=== PATIENT | female | born 1970 | race Caucasian/White ===

== ENCOUNTER 2022-03-23 08:06 | Outpatient (CLI) | payer BC, SELFPAY ==
[2022-03-23 13:20] LABS: Chloride* 106 mmol/L (96-114); Potassium* 4.7 mmol/L (3.6-5.1); Sodium* 140 mmol/L (135-149)
[2022-03-23 13:22] LABS: Cholesterol* 212 mg/dL (90-199)
[2022-03-23 13:23] LABS: Blood Urea Nitrogen* 23 mg/dL (5-24); Calcium* 9.8 mg/dL (8.4-10.6); Carbon Dioxide* 27 mmol/L (20-32); Creatinine* 0.7 mg/dL (0.5-1.5); Estimated Glomerular Filt Rate 106 ml/min; Glucose* 112 mg/dL (60-115); HDL Cholesterol* 33 mg/dL (>=50); LDL Cholesterol Calculated 120 mg/dL (<100); Triglycerides* 293 mg/dL (40-149)
== END 2022-03-23 08:07 | disposition home or self-care (01) ==
PROVIDERS: PCP Emergency Medicine; Visit Provider Emergency Medicine
DX: Z00.00 Encounter for general adult medical examination without abnormal findings (principal); Z13.6 Encounter for screening for cardiovascular disorders
CPT/HCPCS: 80048; 80061

== ENCOUNTER 2022-07-15 13:09 | Outpatient (CLI) | payer BC, SELFPAY ==
--- NOTE | 2022-07-15 13:40 | CRLHL7_ITS ---
For Patients: As a result of the Cures Act, medical imaging exams and procedure reports are released immediately into your electronic medical record. You may view this report before your referring provider. If you have questions, please contact your health care provider. BILATERAL SCREENING MAMMOGRAM WITH COMPUTER-AIDED DETECTION TECHNIQUE: CC and MLO views were obtained. These mammographic images have been obtained using full-field digital technique. These mammographic images were interpreted with the benefit of computer-aided detection. COMPARISON FILM: Baseline. FINDINGS: The breasts are heterogeneously dense, which may obscure small masses IMPRESSION: There is no radiographic evidence for malignancy. ASSESSMENT: BI-RADS Category 2: Benign RECOMMENDATION: Routine screening mammogram in 1 year. A lay language report of this examination will be provided to the patient. ARIANNE MALAGON M.D. Diagnostic/Nuclear Medicine Radiologist [email or web address] Transcribed: 3:41 p.mJuana chaudhary/Dictated by: Arianne Malagon MD @ 07/18/2022 8:38:00 AM (Electronically Signed)
== END 2022-07-15 13:10 | disposition home or self-care (01) ==
LOC: MAMMO 13:11
PROVIDERS: PCP Emergency Medicine; Visit Provider Emergency Medicine
DX: Z12.31 Encounter for screening mammogram for malignant neoplasm of breast (principal); R92.2 Inconclusive mammogram
CPT/HCPCS: 77067

== ENCOUNTER 2024-03-06 10:17 | Outpatient (CLI) | payer BC, SELFPAY | END 2024-03-06 10:18 | disposition home or self-care (01) | PROVIDERS: PCP Emergency Medicine; Visit Provider Physician Assistant Medical | DX: E87.1 Hypo-osmolality and hyponatremia (principal); Z13.228 Encounter for screening for other metabolic disorders; Z13.29 Encounter for screening for other suspected endocrine disorder; Z12.4 Encounter for screening for malignant neoplasm of cervix | CPT/HCPCS: 80053; 80061; 84443; 87624 ==

== ENCOUNTER 2024-05-21 11:11 | Outpatient (CLI) | payer BC, SELFPAY ==
--- NOTE | 2024-05-21 11:30 | CRLHL7_ITS ---
For Patients: As a result of the Century Cures Act, medical imaging exams and procedure reports are released immediately into your electronic medical record. You may view this report before your referring provider. If you have questions, please contact your health care provider. BILATERAL DIGITAL SCREENING MAMMOGRAM WITH COMPUTER-AIDED DETECTION AND TOMOSYNTHESIS CLINICAL HISTORY: Routine screening exam. COMPARISON: 07/15/2022. TECHNIQUE: Digital mammogram in CC and MLO projections including computer-aided detection (CAD). Tomosynthesis was used in this interpretation. BREAST COMPOSITION: The breasts are heterogeneously dense, which may obscure small masses. FINDINGS: RIGHT Breast: No suspicious findings. LEFT Breast: Cluster of microcalcifications are present within the lower inner quadrant 4 cm from the nipple. IMPRESSION: LEFT breast calcifications. RECOMMENDATIONS: Spot compression magnification views of the calcifications in the LEFT breast in CC and ML projections. [facility] will contact the patient. A lay language report of this examination will be provided to the patient. BI-RADS Category 0: Incomplete: Need Additional Imaging Evaluation Dictated by Jon Huffman MD @ 05/21/2024 12:13:52 PM /Dictated by: Jon Huffman MD @ 05/21/2024 12:14:00 PM (Electronically Signed)
== END 2024-05-21 11:12 | disposition home or self-care (01) ==
LOC: MAMMO 11:12
PROVIDERS: PCP Physician Assistant Medical; Visit Provider Physician Assistant Medical
DX: Z12.31 Encounter for screening mammogram for malignant neoplasm of breast (principal); R92.333 Mammographic heterogeneous density, bilateral breasts; R92.1 Mammographic calcification found on diagnostic imaging of breast
CPT/HCPCS: 77063; 77067

== ENCOUNTER 2024-06-03 07:47 | Outpatient (CLI) | payer BC, SELFPAY ==
--- NOTE | 2024-06-03 07:45 | CRLHL7_ITS ---
For Patients: As a result of the Cures Act, medical imaging exams and procedure reports are released immediately into your electronic medical record. You may view this report before your referring provider. If you have questions, please contact your health care provider. DIGITAL DIAGNOSTIC LEFT MAMMOGRAM WITH TOMOSYNTHESIS AND COMPUTER-AIDED DETECTION CLINICAL HISTORY: LEFT breast mass/asymmetry. COMPARISON: 05/21/2024, 07/15/2022. TECHNIQUE: Digital LEFT mammogram in two projections. Tomosynthesis and computer-aided detection utilized. BREAST COMPOSITION: There are scattered areas of fibroglandular density. FINDINGS: Spot magnification CC/true lateral LEFT breast mammogram images submitted. A few scattered punctate calcifications are present within the deep LEFT breast without pleomorphism or underlying mass. Calcifications spread out on the magnification views. IMPRESSION: Benign punctate calcifications scattered within the deep LEFT breast. No suspicious findings. RECOMMENDATIONS: Routine screening mammography. A lay language report of this examination will be provided to the patient. BI-RADS Category 2: Benign Dictated by Jon Huffman MD @ 06/03/2024 12:07:45 PM jj/Dictated by: Jon Huffman MD @ 06/03/2024 12:07:00 PM (Electronically Signed)
== END 2024-06-03 07:48 | disposition home or self-care (01) ==
LOC: MAMMO 07:47
PROVIDERS: PCP Physician Assistant Medical; Visit Provider Physician Assistant Medical
DX: N63.20 Unspecified lump in the left breast, unspecified quadrant (principal); R92.1 Mammographic calcification found on diagnostic imaging of breast; R92.8 Other abnormal and inconclusive findings on diagnostic imaging of breast
CPT/HCPCS: 77065; G0279

== ENCOUNTER 2024-12-31 09:41 | Outpatient (CLI) | payer BC, SELFPAY ==
--- NOTE | 2024-12-31 10:00 | CRLHL7_ITS ---
For Patients: As a result of the Century Cures Act, medical imaging exams and procedure reports are released immediately into your electronic medical record. You may view this report before your referring provider. If you have questions, please contact your health care provider. INDICATION: VERTIGO. PRESSURE IN EARS TECHNIQUE: Non-contrast CT of the temporal bones is submitted. COMPARISON: None. FINDINGS: Right temporal bone structures: Unremarkable external auditory canal and tympanic membrane. The ossicular chain is intact. Partially pneumatized right petrous apex with a few partially fluid-filled air cells. The middle ear cavity and mastoid air cells are otherwise clear with no evidence of bony erosion. The fluid containing vestibulocochlear inner ear structures are unremarkable. Unremarkable internal auditory and facial nerve canals. Left temporal bone structures: Unremarkable external auditory canal and tympanic membrane. The ossicular chain is intact. The middle ear cavity and mastoid air cells are clear with no evidence of bony erosion. The fluid containing vestibulocochlear inner ear structures are unremarkable. The internal auditory and facial nerve canals are unremarkable. The partially visualized intracranial contents are unremarkable. Partially visualized mild mucosal thickening with a small retention cyst in the right maxillary sinus. The visualized paranasal sinuses are otherwise essentially clear. IMPRESSION: Partial opacification of a few pneumatized right petrous apex air cells, which may reflect a small effusion. Otherwise, unremarkable appearance of the bilateral temporal bone structures. Please note that all CT scans at this facility use dose modulation, iterative reconstruction, and/or weight-based dosing when appropriate to reduce radiation dose to as low as reasonably achievable. Dictated by Yared Adhikari MD @ 12/31/2024 5:44:06 PM (Electronically Signed)
--- NOTE | 2024-12-31 10:15 | CRLHL7_ITS ---
For Patients: As a result of the Century Cures Act, medical imaging exams and procedure reports are released immediately into your electronic medical record. You may view this report before your referring provider. If you have questions, please contact your health care provider. INDICATION: Ear per. Dizziness and giddiness. COMPARISON: None. TECHNIQUE: Multiplanar T1, T2, FLAIR and diffusion-weighted imaging. Post gadolinium T1 weighted sequences. Additional pre and post gadolinium sequences of the skullbase and IAC`s. Gadolinium 13 cc IV FINDINGS: Normal brain parenchymal morphology. Few scattered foci of T2/FLAIR signal hyperintensity within the white matter of the frontal lobes are nonspecific and may represent chronic deep white matter small vessel ischemic changes or sequela of migraine headache. No intracranial hemorrhage. No abnormal ventricular dilatation. Intracranial vascular flow voids preserved. No mass effect. No midline shift. No restricted diffusion to suggest acute ischemia. No abnormal enhancement or enhancing lesions within the brain parenchyma. Dedicated sequence of the skullbase and IAC`s demonstrates normal course of cranial nerves 7 and 8 from the root entry zone to the fundus of the IAC`s. Normal fluid signal within the cochlea and vestibule. Normal root entry zone of the bilateral trigeminal nerves. No abnormal mass or enhancement within cerebellopontine angles or IAC`s. Bilateral orbits are unremarkable. Normal appearing sella. Visualized paranasal sinuses and mastoid air cells are unremarkable. IMPRESSION: 1. No acute intracranial abnormality 2. Normal brain parenchymal morphology. Few scattered foci of T2 signal within the white matter of the frontal lobes may represent chronic deep white matter small vessel ischemic changes or sequela migraine headache 3. No abnormal enhancement or enhancing lesions. 4. Dedicated sequences of the skull base nice ease demonstrates normal course of cranial nerves. No abnormal mass or enhancement. Dictated by Bryce Parrish MD @ 01/02/2025 3:31:31 PM (Electronically Signed)
== END 2024-12-31 09:42 | disposition home or self-care (01) ==
PROVIDERS: PCP Physician Assistant Medical; Visit Provider Otolaryngology
DX: R42 Dizziness and giddiness (principal)
CPT/HCPCS: 70480; 70553; A9575

== ENCOUNTER 2025-01-24 09:15 | Outpatient (RCR) | payer BC, SELFPAY ==
--- NOTE | 2024-10-23 09:58 | PT.OPDN ---
PT [facility] Daily Note PT [facility] Out[facility] Daily Note Start: 10/15/24 10:57 Freq: Status: Active Protocol: Document 10/22/24 18:00 BMS (Rec: 10/23/24 09:58 BMS [id number]) E-signed By Dixie Roque, PT PT OP Daily Progress Note Visit Information Note Type Daily Note,Recert/Progress Note Visit Number 2 Insurance Information Recert Due Date 01/12/25 Insurance Name [employer] Medical Diagnosis dizziness and giddiness, vertigo R42 Treating Diagnosis unspecified vestibular disorder H81.90 H81.13 BPPV B cervicalgia M54.2 Headache R51.9 Referring MD Brian Pagan PA-C Subjective Subjective better not spinny butoff. just dont feel good dont know what to do pressure in ear and head worse Objective Other/Pertinent Objective B esperanza hallpike (-), horizontal canals mild L horizontal Patient Instructed in Risks/Benefits Yes Neuromuscular Re-Ed Neuromuscular Reeducation Minutes ( 25 minutes) Neuromuscular Reeducation Comments testing all canals B esperanza hallpike (-), anterior (-) L horizontal mild + L gufoni with verbal instruct for home. Treatment Minutes Timed Code Treatment Minutes 25 Total Treatment Time 25 Billing Units Neuromuscular Reeducation Units 2 Assessment/Impression Assessment/Impression patient returns with decreased reports of spinning, unable to recreate symptoms with positional testing this date. continues to complain of ear fullness and head fullness. did discuss she may need to return to provider, consider steroid for inflammation of ear for poss neuritis/ labrynthitis states she is frustrated with many health conditions. may return prn for dizziness. may also benefit from habituation once inflammation controlled if that does not clear symptoms. 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 2) Patient demo ability to sit up from lying, and rolling over in bed without onset of vertigo symptoms. 3) Pt report symptoms of imbalance due to vestibular to impact her gait and activity <2x/ week Daily Plan of Care Continue per POC
--- NOTE | 2024-11-15 14:28 | PT.OPE ---
PT [place] [facility] Eval PT [facility] Outpatient Eval Start: 10/15/24 10:57 Freq: Status: Active Protocol: Document 11/13/24 14:06 BMS (Rec: 11/13/24 14:08 BMS [id number]) E-signed By Dixie Roque PT Physical Therapy Outpatient Evaluation Insurance Information Recert Due Date 02/10/25 Insurance Name [employer] Medical Diagnosis dx added 11/13/24 left lower quadrant pain R10.32 left inguinal pain ~~~~~~~~~~~~~~~~~~~~~~ dizziness and giddiness, vertigo R42 Treating Diagnosis dx added 11/13/24 Left hip pain M25.552 low back pain M54.50 abnormal gait R26.89 ~~~~~~~~~~~~~~~~~~~~~~ unspecified vestibular disorder H81.90 H81.13 BPPV B cervicalgia M54.2 Headache R51.9 Referring MD Brian Pagan PA-C Subjective Preferred Name Pinky Subjective went through pain clinic at [facility] for low back (spinal fusion with cages low back maybe L4-5 and have severe pain and catching in my left hip, no specific injury jessica why it hurts. pain in my hip - the front and deep where it catches julio cesar when I walk. Hip Catches every time take a step in/out chair is ok, Tail bone bad pain when sitting, whole body, Tail bone when sitting super tender ok when walking Front of hip going up down stairs bothers Partial hysterectomy many years ago Hot flashes, dizziness, cancelled chiro went 3-4 times cant stand when crack neck. Maybe a little better for a short time SO dizzy when roll over both ways every time, headaches ? 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 has had to cut back on hours due to pain and dizziness Precautions Treatment fibromyalgia Precautions/ chronic dizziness Contraindications chronic pain, joints abnormal gait Therapy Limitations/ Affect,Other Medical Problem Systems Review Objective Range of Motion trunk flex fingertips to tibial tuberosity ext mild loss with discomfort at lower left lumbar. L=R SB tight B hip flex in supine passive L restricted to 90 initially, deviates into abduction IR 20 w pain into pinch w scour ER with pain when not abducted Strength hip flex L 3+/5, abduction 4/5, B adduct 3/5 Palpation mod tender along entire trochanteric region, inguinal lig and into quad. some tenderness into iliopsoas Balance & Gait antalgic julio cesar first 10 steps Posture anterior pelvic tilt Sensation/Reflexes diminished R femoral n pinprick compared to L Other/Pertinent SLR + R at 30-40 degrees, not cross over Objective unable to stabilize on R for knee to chest, unable to flex actively past 80 in standing due to hip tightness and pain Assessment Assessment/ Patient returns this date with new order for left lower Impression quadrant pain. She reports long history of low back pain and into hip, now catches when she stands and walks. 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 Cannot do anything involving kneeling, up/down from floor, significant pain with forward flex ie cleaning toilets when returns to stand then tries to walk is when she gets catch. Patient has ongoing neck pain and headaches with dizziness of uncertain origin as well, has recently seen ENT for this and was prescribed allergy medication recently. She is quite frustrated with her situation and does become tearful. She admits to needing better adherence to hydration recommendations, is an every day smoker and is trying to manage her weight but unable to even go for a walk bc of the recurrent hip pain. She responded well to hip tissue mobiliity but did have increased pain with grade IV mobs. Improved pain and mobility after session, will assess longer term response at next session, will add hip/lower quarter pain to POC in place already for dizziness, vertigo, neck and head pain. Primary Functional walking, sitting on floor, Hip rom and mobility and Limitations strength. dizziness balance activity tolerance Plan of Care Rehabilitation Good Potential Physical Therapy 1) Patient report ability to perform all self employed Goals house cleaning duties without vertigo including bending forward, looking upward and reaching, wiping, vacuuming etc. 2) Patient demo ability to sit up from lying, and rolling over in bed without onset of vertigo symptoms. 3) Pt report symptoms of imbalance due to vestibular to impact her gait and activity <2x/ week 11/13/24 addition 1) Patient will demonstrate I HEP and self care/home mgmt techniques for pain management, core stability and ROM. 2 ) Pt report pain <2-3/10 with activity and provocative positions rolling over in bed, standing up, getting out of car etc. 1) Pt demo ability to lift 10-15# for home and self care without increased pain using most appropriate applicable body mechanics 2) Pt report pain not interrupting sleep more than 2x/ week without use of medication. 3) Pt will demo 1mile ambulation without limp and with best mechanics and balance to decrease risk of fall with community ambulation for things such as grocery shopping, participation in fitness activities. 4) Pt will demo ability to return to walking, yoga and functional strengthening [ End ] Coordination/ Referral Source Communication With Treatment Plan/ Dry Needling,Electrical Stimulation,Gait Training,Heat, Direct Interventions Ice/Cold/Vasopneumatic,Manual Therapy,Neuromuscular Re- ed,Self-Care/Home Management,Therapeutic Activities, Therapeutic Exercises,Traction (Mechanical),Ultrasound Frequency/Duration 1-2x/week x 15 visits Patient Will Be Completion of LTG(s),Skills Plateau,Independent w/HEP, Discharged From Independently Progressing Therapy Evaluation Billing Complexity Moderate Certification Information Initial 11/13/24 Certification Date Ending Certification 02/10/25 Date Provider Signature Communication Only-No Signature Required Required
== END 2025-05-24 23:59 | disposition home or self-care (01) ==
PROVIDERS: PCP Physician Assistant Medical; Visit Provider Physician Assistant Medical
DX: R42 Dizziness and giddiness (principal); R10.32 Left lower quadrant pain; Z51.89 Encounter for other specified aftercare
CPT/HCPCS: 97110; 97112; 97140; 97161; 97162